=== PATIENT | male | born 1980 | race African-American/Black ===

== ENCOUNTER 2021-08-19 11:45 | Emergency (ER) | payer OTHER, SELFPAY ==
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
[2021-08-19 11:57] VITALS: BP 136/91; PULSE 74; RESP 16; TEMP 36.6; O2SAT 100
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
[2021-08-19 17:19] VITALS: BP 129/87; PULSE 75; RESP 16; TEMP 36.2; O2SAT 99
== END 2021-08-19 17:58 | disposition home or self-care (01) ==
LOC: ANHED 17:53
DX: S16.1XXA Strain of muscle, fascia and tendon at neck level, initial encounter (principal); V49.9XXA Car occupant (driver) (passenger) injured in unspecified traffic accident, initial encounter
CPT/HCPCS: 71046; 72125; 99284; L0140